=== PATIENT | female | born 1990 | race Caucasian/White ===

== ENCOUNTER → 2024-04-30 | Outpatient (CLI) | payer MEDICAID | END | disposition home or self-care (01) | LOC: RAD 10:01 | PROVIDERS: ATTEND Nurse Practitioner Primary Care | DX: M54.6 Pain in thoracic spine (principal) | CPT/HCPCS: 72050; 72074 ==

== ENCOUNTER → 2024-05-20 | Outpatient (CLI) | payer MEDICAID | END | disposition home or self-care (01) | LOC: RAD 08:33 | PROVIDERS: ATTEND Nurse Practitioner Primary Care | DX: M25.561 Pain in right knee (principal); M25.562 Pain in left knee; M79.642 Pain in left hand; M79.641 Pain in right hand; M79.672 Pain in left foot; M79.671 Pain in right foot; M25.532 Pain in left wrist; M25.531 Pain in right wrist; M89.8X8 Other specified disorders of bone, other site; G89.29 Other chronic pain | CPT/HCPCS: 73110; 73130; 73564; 73630 ==